=== PATIENT | female | born 1935 | race Caucasian/White ===

== ENCOUNTER 2024-05-03 18:56 | Emergency (ER) | payer MEDICARE, OTHER, SELFPAY ==
[2024-05-03 19:09] VITALS: BP 182/102
--- NOTE | 2024-05-03 20:08 | ED.MUSCINJ ---
HPI-Injury
General
Chief Complaint: Head Injury
Source: patient
Exam Limitations: none
Time Seen by Provider: 05/03/24 19:55
Travel History
Have you had any contact with someone who has COVID-19?: No
Do you have any symptoms of coronavirus? Fever > 100 degrees, chills, cough, shortness of breath, sore throat, loss of taste or smell, muscle aches, or headache?: No
History of Present Illness-Injury
Initial Injury comments:
88-year-old female not anticoagulated presents after a trip and fall falling backwards with laceration to posterior scalp. No loss of conscious. She notes a slight headache denies any significant neck pain. No other complaints at this time
Past History
Past History
ED Past Medical History: Hypothyroidism
Social History
Living: with family
Phy Exam
Physical Exam
Physical Exam:
General: Well-appearing female nontoxic no acute respiratory distress
HEENT: Normocephalic 3 cm laceration right posterior scalp. Pupils equal left pupil is slightly teardrop in shape however this is chronic per the patient. TMs normal no Sandoval sign
Musculoskeletal exam: Mild diffuse paraspinous tenderness of the cervical spine no deformities to the extremities
Extremities: No cyanosis
Neuro: Alert and oriented no facial asymmetry good strength to the upper and lower extremities
Injury Course
Orders/Labs/Results
Orders:
Orders
05/03/24 19:59
CT Cervical Spine W/o Iv Contr Urgent
Comment:
Reason For Exam: fall
CT Head W/o Iv Contrast Urgent
Comment:
Reason For Exam: fall
MDM/Problems Addressed
Differential Diagnosis Includes:
Mechanical fall with head injury. CT of head and cervical spine pending. The wound was irrigated saline and closed after local anesthesia was applied with 1% lidocaine with epinephrine. 4 kevan were required to close the wound
*Critical Care Note
Total Time (30-74mins, 75-104mins- exclusive of procedures): Not Applicable
Update Note
Update Note:
CT of head and cervical spine both negative for acute findings. Patient stable for discharge
ED Attending Note
-
Portions of this chart may have been created with voice recognition software.� Occasional wrong word or��sound alike� substitutions may have occurred due to the inherent limitations of voice recognition software.
Discharge Plan
Departure
Patient Disposition: Home (Routine Discharge)
Date of Disposition: 05/03/24
Time of Disposition: 20:48
Patient with high blood pressure during this ER visit?: No
Discharge Problem:
Laceration
Instructions: Laceration Repair With [place] (DC)
Prescriptions:
No Action
levothyroxine 88 MCG tablet
88 mcg PO DAILY
hydrocodone-acetaminophen [Vicodin] 1 EACH tablet
1 ea PO Q4HPRN PRN (Reason: pain) Qty: 12 0RF
Activity Restrictions/Additional Instructions:
Keep clean. Have kevan removed in 7 to 10 days. Return if worse otherwise
Interventions
Interventions:
*Risk Screen - Suicide Last Done: 05/03/24 19:09
*Neglect/Abuse Screening Last Done: 05/03/24 19:09
ED-Musculoskeletal Assessment Last Done: 05/03/24 20:14
ED- Neurological Assessment Last Done: 05/03/24 20:14
ED-Skin Assessment Last Done: 05/03/24 20:14
Discharge Date and Time
Print Language: BELARUSIAN
== END 2024-05-03 21:02 | disposition home or self-care (01) ==
LOC: EMR 18:56
PROVIDERS: EMERGENCY PHYSICIAN Emergency Medicine; FAMILY PHYSICIAN Internal Medicine
DX: S01.01XA Laceration without foreign body of scalp, initial encounter (principal); W01.0XXA Fall on same level from slipping, tripping and stumbling without subsequent striking against object, initial encounter; E03.9 Hypothyroidism, unspecified
CPT/HCPCS: 99284; 12002; 70450; 72125